=== PATIENT | female | born 1995 | race African-American/Black ===

== ENCOUNTER 2016-11-01 21:24 | Emergency (ER) | payer OTHER ==
[~2016-11-01] VITALS: Ht 175.3 cm; Wt 63.7 kg
[2016-11-01 21:27] VITALS: BP 121/83; PULSE 81; TEMP 36.9; O2SAT 100; Ht 175.3 cm; Wt 63.7 kg
[2016-11-01] MEDS ORDERED: NORCO 5/325MG HOME PACK PO ONE (21:45)
[2016-11-01] MEDS ORDERED: ONDANSETRON HOME PACK 4MG OD TAB PO ONE (21:45)
[2016-11-01] MEDS ORDERED: PENICILLIN HOME PACK 250MG (4)BTL PO ONE (21:45)
[2016-11-01] MEDS ORDERED: HYDR-5688 PO (21:49)
[2016-11-01] MEDS ORDERED: ONDA4TAB10 SL (21:49)
[2016-11-01] MEDS ORDERED: PENI-82 PO (21:49)
--- NOTE | 2016-11-01 21:51 | EMERGENCY ROOM VISIT NOTE ---
ED Visit Note First contact with patient: 21:38 CHIEF COMPLAINT: Toothache HISTORY OF PRESENT ILLNESS: This 20-year-old female patient presented to the emergency department ambulatory with a progressive toothache for past 2 days. She states she has had issues with one of the left lower molars. She reports that 5-6 months ago, she cracked the tooth and saw a dentist. She states the dentist did x-rays and told her that she needed a root canal. She states she believes she cracked the tooth again 2 days ago. She has not contacted the dentist. She rates her discomfort a 10/10. She has been taking ibuprofen, but states that it makes her nauseous to take this. The patient denies any discharge from the mouth. REVIEW OF SYSTEMS: A 6 system review of systems was completed with positives and pertinent negatives listed in the HPI. ALLERGIES: No known drug allergies MEDICATIONS: No chronic medications PMH: No significant past medical history. SOCIAL HISTORY: The patient is a [employer] student and lives with roommates. PHYSICAL EXAM: Vitals are noted on the nurse's note and reviewed by myself. Vital signs stable. Temperature 36.9C orally. GENERAL: This is a 20-year-old female, in no acute distress, nondiaphoretic, well-developed well-nourished. Mouth: The with left lower first molar tooth is very carious and cracked. The gum is mildly swollen and tender around it, without any discharge or signs of an abscess. The remainder of the pharynx and tonsils are without erythema, edema, or exudate. The airway is patent. There is no facial swelling, cervical or submandibular lymphadenopathy. The patient appears uncomfortable and in pain. The patient has overall good dental hygiene. EARS: External auditory canals clear, tympanic membranes pearly valverde without erythema or effusion bilaterally. ED COURSE: The patient was evaluated as above. She will be placed on an antibiotic and a short course of pain medication. She was instructed that she will need to follow up with a dentist for further evaluation of her symptoms. She will return for worsening symptoms. The PDMP was queried and no red flags were identified. The patient verbalized understanding of my assessment and treatment plan and was discharged home in good condition. DIAGNOSIS: Odontalgia Current/Historical Medications Scheduled Ondasetron Odt (Zofran Odt), 4 MG SL Q6H Penicillin V Potassium (Veetids), 500 MG PO TID Scheduled PRN Acetaminophen (Tylenol), 1,500 MG PO Q12 PRN for Pain Hydrocodone/Acetaminophen 5MG/325MG (Mineral 5MG/325MG), 1-2 TABLET PO Q4H PRN for Pain Ibuprofen (Advil), 600 MG PO Q8 PRN for Pain Allergies Coded Allergies: No Known Allergies (Unverified , 11/01/16) Vital Signs Date Time Temp Pulse Resp B/P Pulse Ox O2 Delivery O2 Flow Rate FiO2 11/01/16 21:27 36.9 81 20 121/83 100 Room Air Medications Administered Medications (Trade) Dose Ordered Sig/Joyce Route Start Time Stop Time Status Last Admin Dose Admin Acetaminophen/ Hydrocodone Bitart (Mineral 5/325mg Home Pack) 1 homepack UD ONCE PO 11/01/16 21:45 11/01/16 21:49 DC 11/01/16 21:56 1 HOMEPACK Ondansetron HCl (ZOFRAN ODT 4MG Home Pack) 1 homepack UD ONCE PO 11/01/16 21:45 11/01/16 21:49 DC 11/01/16 21:57 1 HOMEPACK Penicillin V Potassium (Pen-Vk 250MG Home Pack) 1 homepack UD ONCE PO 11/01/16 21:45 11/01/16 21:49 DC 11/01/16 21:57 1 HOMEPACK Departure Information Impression Primary Impression: Dental caries Dispostion Home / Self-Care Condition GOOD Prescriptions Penicillin V Potassium (Veetids) 500 Mg Tab 500 MG PO TID for 7 Days, #21 TAB Prov: Dilia Mcintosh PA-C 11/01/16 Ondasetron Odt (ZOFRAN ODT) 4 Mg Tab 4 MG SL Q6H for Nausea, #10 TAB Prov: Dilia Mcitnosh PA-C 11/01/16 Hydrocodone/Acetaminophen 5MG/325MG (Mineral 5MG/325MG) Tab 1-2 TABLET PO Q4H Y for Pain, #12 TAB For Initial Treatment Prov: Dilia Mcintosh PA-C 11/01/16 Referrals No Doctor, Assigned (PCP) Patient Instructions [facility] Additional Instructions You have been treated in the Emergency Department for Dental Pain. You have been prescribed Mineral to be used for pain control. This is a narcotic medication. You cannot drive or consume alcohol while on this medicine. This medicine should only be used for pain that cannot be controlled with over-the- counter pain medicines. You have been prescribed Zofran to be used for any nausea or vomiting. Take as prescribed. You were prescribed and penicillin to be taken as prescribed. This is an antibiotic. All antibiotics have the potential to cause diarrhea. Stop this medication and contact a medical provider if you were to develop any significant adverse side effects including: wheezing, shortness of breath, passing out, vomiting, or a diffuse rash. Always take antibiotics as directed and COMPLETE the ENTIRE course regardless of the improvement of your symptoms. For pain control, you can use the following [id number] medicines (if >12 yo): - Regular strength (325mg/tab) Tylenol (acetaminophen) 2 tabs every 4-6 hours as needed. Do not exceed 12 tablets in a 24 hour period. Avoid taking more than 4 grams (4000 mg) of Tylenol per day. This includes any other sources of acetaminophen you may take on a regular basis. - Regular strength (200 mg/tab) Advil (ibuprofen) 1-2 tabs every 4-6 hours as needed. Do not exceed a dose of 3200 mg per day. Refrain from smoking cigarettes or using chewing tobacco until you have been evaluated by your dentist. Keeping beverages lukewarm and consuming soft foods can decrease your pain. Warm compresses over the affected area may offer some relief. You MUST seek evaluation of your dental pain by a dentist following your visit to the Emergency Department. The Emergency Department is not capable of treating dental issues long-term. You should call your dentist as soon as possible to make an appointment for evaluation of your dental pain. Return to the emergency department if you develop the following symptoms despite treatment course outlined above: fever, intractable pain, increased redness, swelling, or purulent discharge.
[2016-11-01] MEDS ORDERED: IBUP-1050 PO (21:53)
[2016-11-01] MEDS ORDERED: ACET-1256 PO (21:53)
== END 2016-11-01 21:57 | disposition home or self-care (01) ==
LOC: C.EDB 21:25 → C.EDD 21:57
DX: K02.9 Dental caries, unspecified (principal)